=== PATIENT | female | born 1990 | race Caucasian/White ===

== ENCOUNTER 2021-11-16 12:06 | Emergency (ER) | payer OTHER, MEDICAID, SELFPAY ==
[2021-11-16 12:29] VITALS: BP 138/89; PULSE 88; RESP 18; TEMP 36.8; O2SAT 100
--- NOTE | 2021-11-16 14:03 | ED.URI ---
HPI - URI/Sore Throat General Chief Complaint: Ear Stated Complaint: toothache,sorethroat,bilateral ear pain Time Seen by Provider: 11/16/21 14:17 Source: patient and RN notes reviewed Mode of arrival: ambulatory Limitations: no limitations History of Present Illness HPI Narrative: 30-year-old female presents concern for left lower dental pain that is causing ear pain, jaw pain, sinus pain and sore throat. She reports she has been having some dental work done but had to quit getting dental work done because her insurance changed. She reports she has a dentist that she can see but they can get her into left for the holidays. She reports she has been taking ibuprofen with little relief. MD elicited complaint: cough and sore throat Related Data Allergies Allergy/AdvReac Type Severity Reaction Status Date / Time clavulanic acid Allergy Unknown Unknown Verified 11/16/21 13:11 amoxicillin Allergy Rash Verified 11/16/21 13:11 Review of Systems Review of Systems: CONSTITUTIONAL: Denies malaise, chills, sweats, or fever. EYES: Denies visual changes, redness, or discharge. ENT: Reports left-sided sinus pain, congestion, sore throat and ear pain. Reports left lower dental pain CARDIOVASCULAR: Denies chest pain, palpitations, or edema. RESPIRATORY: Denies cough. Denies dyspnea. GASTROINTESTINAL: Denies abdominal pain, nausea, vomiting, diarrhea SKIN: Denies rash or itching. MUSCULOSKELETAL: Denies myalgia. NEUROLOGIC: Reports headache. All systems reviewed & are unremarkable except as noted in HPI and below PMFSH Past Medical History Medical History (Updated 11/16/21 @ 14:24 by Nadege Patterson NP) Anemia Anxiety Depression Social History Social History Smoking status: Never smoker Gender identity (if verbalized by the patient): Female Comments At time of signature, agree with nursing past medical, surgical, social and family history. There is no relevant family history pertinent to the presenting complaint Exam Narrative: GENERAL: Nontoxic-appearing, well-nourished, appears to be in pain HEAD: Normocephalic EYES: PERRLA, conjunctivae clear ENT: Nares clear. Mucous membranes moist. TM pearly waddell with sharp light reflex bilaterally; no tragal tenderness. Oropharynx not erythematous without lesions. Tonsils not enlarged and without exudate, no drooling, no hoarseness, no trismus, uvula midline. Left lower posterior gingival erythema and edema, left lower jaw swelling NECK: Supple. No lymphadenopathy CHEST: Clear to auscultation, breath sounds equal. No wheezing, rhonchi, rales, or stridor. No respiratory distress, speaks in full sentences. HEART: Regular rate and rhythm. No murmur heard. SKIN: Warm, dry, no rash. NEURO: Alert and oriented x3. PSYCH: Tearful Course Course Emergency Course: Patient is aware of diagnosis, understands and agrees to treatment plan. Anticipatory guidance given. Patient agrees to follow-up as directed and is aware of reasons to seek care at the emergency department. Portions of this record may have been created with voice recognition software Vital Signs Vital signs: Vital Signs Temperature 98.3 F 11/16/21 12:29 Pulse Rate 88 11/16/21 12:29 Respiratory Rate 18 11/16/21 12:29 Blood Pressure 138/89 11/16/21 12:29 Pulse Oximetry 100 11/16/21 12:29 Temperature 98.3 F 11/16/21 12:29 Pulse Rate 88 11/16/21 12:29 Respiratory Rate 18 11/16/21 12:29 Blood Pressure 138/89 11/16/21 12:29 Pulse Oximetry 100 11/16/21 12:29 Reviewed. MDM - URI/Sore Throat MDM Narrative Medical decision making narrative: Patients pain and complaint coupled with physical findings are consistant with dentalgia. There are no focal signs of space occupying lesions that are compromising to the airway; no dysphagia, odynophagia, dysphonia, or dyspnea. No uvular deviation or soft palate edema. Patient is non-toxic appearing. The floor of
== END 2021-11-16 14:35 | disposition home or self-care (01) ==
PROVIDERS: Emergency Provider Nurse Practitioner
DX: K04.7 Periapical abscess without sinus (principal)
CPT/HCPCS: 99213; G0463

== ENCOUNTER 2023-12-07 17:14 | Emergency (ER) | payer OTHER, SELFPAY ==
[2023-12-07 17:22] VITALS: BP 138/97; PULSE 95; RESP 16; TEMP 37.9; O2SAT 98
--- NOTE | 2023-12-07 17:28 | ED.URI ---
HPI - URI/Sore Throat General Chief Complaint: Upper Respiratory Infection Stated Complaint: Nausea;Cough;Congestion;Chills Source: patient, RN notes reviewed and old records reviewed Mode of arrival: ambulatory Limitations: no limitations History of Present Illness HPI Narrative: 32-year-old female presents to [facility] with complaint of cough, congestion, nausea, vomiting, myalgia, chills that started this a.m.. Patient taking medications with no relief. Patient denies chest pain, shortness of breath, weakness, dizziness. MD elicited complaint: cough and other ( nausea vomiting) Onset (ago): day(s) (1) Severity: moderate Able to tolerate fluids by mouth: Yes Relieving factors: nothing Related Data Home Medications Medication Instructions Recorded Confirmed norgestimate-ethinyl estradiol 1 tablet PO DAILY 12/07/23 12/07/23 0.18 mg/0.215mg/0.25mg-35 mcg(28)tablet (Tri-Sprintec (28)) Allergies Allergy/AdvReac Type Severity Reaction Status Date / Time clavulanic acid Allergy Unknown Unknown Verified 12/07/23 17:18 amoxicillin Allergy Rash Verified 12/07/23 17:18 Review of Systems Constitutional: Constitutional: Reports no additional constitutional complaints, Reports body ache(s), Reports chills, Reports fatigue, Denies fever(s) and Reports headache(s) Eyes: Eyes: Reports no additional eye complaints and Denies blurry vision ENT: Reports system reviewed and no additional complaints, except as documented, Denies vertigo, Denies dizziness, Denies ear discharge, Denies otalgia, Denies facial pain, Denies headache(s), Reports nasal congestion, Reports nasal discharge, Denies sinus pain, Reports sinus pressure and Reports sore throat Cardiovascular: Cardiovascular: Reports no additional cardiovascular complaints, Denies chest pain, Denies chest pain at rest, Denies rapid heart rate and Denies dyspnea Respiratory: Respiratory: Reports no additional respiratory complaints, Denies chest congestion, Reports cough, Denies pain on inspiration, Denies pain with cough and Denies dyspnea Gastrointestinal: Gastrointestinal: Denies abdominal pain, Denies diarrhea, Reports nausea and Reports vomiting Integumentary/Breasts: Skin/Breast: Denies rash Neurologic: Reports system reviewed and no additional complaints, except as documented, Denies vertigo, Denies dizziness and Denies headache(s) Endocrine: Endocrine: Denies fatigue PMFSH Past Medical History Medical History (Updated 12/07/23 @ 17:45 by Lise Garcia APRN) Anemia Anxiety Depression Social History Social History Smoking status: Never smoker Gender identity (if verbalized by the patient): Female Comments At the time of my signature, I reviewed and agree with the nursing past medical, surgical, social, and family history. There is no relevant family history pertinent to the patient complaint. Exam Const: General: cooperative, healthy appearing, no acute distress and well nourished Nutritional Appearance: well nourished Orientation/consciousness: patient oriented x3 Limitations: no limitations HENMT: Head: normal to inspection and normocephalic Ears: external ears normal, TM's normal bilaterally, mastoids normal and Abnormal EAC present Face/Nose/Sinus: normal facial exam Face and sinus: normal facial exam Mouth: Yes Normal oral and palatal mucosa present, Yes oropharynx normal and Yes moist mucous membranes Throat: tonsils normal, uvula midline, posterior oropharynx abnormal erythema and no uvular edema Eyes: General: appearance normal, both eyes and all related structures Sclera: sclerae normal Pupils: Equal, round and reactive pupils present Resp: Effort & Inspection: normal respiratory effort, able to speak in complete sentences, no audible wheezes, no cough, no respiratory distress and no retractions Auscultation: clear to auscultation bilaterally, no crackles, no rales, no
== END 2023-12-07 17:54 | disposition home or self-care (01) ==
PROVIDERS: Emergency Provider Registered Nurse
DX: J10.1 Influenza due to other identified influenza virus with other respiratory manifestations (principal); Z20.822 Contact with and (suspected) exposure to COVID-19
CPT/HCPCS: 81003; 81025; 87081; 87426; 87804; 87880; 99213; G0463

== ENCOUNTER 2025-09-08 10:17 | Emergency (ER) | payer OTHER, SELFPAY ==
[2025-09-08 10:19] VITALS: BP 110/76; PULSE 72; RESP 16; TEMP 36.7; O2SAT 100
--- OUTSIDE RECORDS SUMMARY | 2025-09-08 12:28 | XMS_ITS | Clinical Summary ---
Author Organization [facility] [employer] [place] Address [address] [place] [id number] Care Team Providers Care Road Mender Name Role Phone Janae Lai MD Primary Care Provider [phone] Allergies Active Allergy Reactions Criticality Noted Date Comments Amoxicillin-Pot Clavulanate Hives High 09/05/20 23 Medications Tri-Sprintec, 28, 0.18/0.215/0.25 mg-35 mcg (28) tabletIndications: Encounter for initial prescription of contraceptive pills Take 1 tablet by mouth once daily 28 Tablet 4 Active Active Problems Problem Noted Date Diagnosed Date Mild depression 09/05/2023 Lymphedema of both lower extremities 09/05/2023 Overview (09/05/2023): treats wtih LE pumps weekly. goal to use daily. Encounter for initial prescription of contracept jake pills 09/05/2023 Immunizations Immunization Administration Dates Next Due (ADACEL/BOOSTRIX)(10 YR UP) TDAP VACCINE, 0.5ML, IM 04/23/2019 Family History Medical History Relation Name Comments No Known Problems Brother Alcohol abuse Father Lung Cancer Maternal Grandfather Breast Cancer Maternal Grandmother Diabetes Mother Obesity Mother Thyroid Disease Mother Relation Name Status Comments Brother Alive Father Alive Maternal Grandfather Maternal Grandmother Mother Son 1 Alive Son 2 Alive Social History Tobacco Use Types Packs/Day Years Used Date Smoking Tobacco: Never Smokeless Tobacco: Never Alcohol Use Standard Drinks/Week Comments Yes 0 (1 standard drink = 0.6 oz pure alcohol) less than a glass a week socially Comments No Sex and Gender Information Value Date Recorded Sex Assigned at Not on file 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 Gender Identity Not on file Sexual Orientation Not on file Last Filed Vital Signs Vital Sign Reading Time Taken Comments Blood Pressure 106/60 09/05/2023 1:05 PM CDT Pulse 62 09/05/2023 1:05 PM CDT Temperature 36.8 C (98.2 F) 09/05/2023 1:05 PM CDT Respiratory Rate - - Oxygen Saturation 98% 09/05/2023 1:05 PM CDT Inhaled Oxygen Concentration - - Weight 133.4 kg (294 lb 3.2 oz) 09/05/2023 1:05 PM CDT Height 177.8 cm (5' 10) 09/05/2023 1:05 PM CDT Body Mass Index 42.21 09/05/2023 1:05 PM CDT Plan of Treatment Health Maintenance Due Date Last Done Comments HEPATITIS B VACCINES (1 of 3 - 19+ 3-dose series) 12/19 HPV/Cotest (21-29) 2013 HPV VACCINES (1 - 3-dose SCDM series) 2019 CERVICAL CANCER SCREENING 2022 HPV/Cotest (30-65) 2022 PAP SMEAR 2022 INFLUENZA VACCINE (#1) 2025 DTAP/TDAP/TD VACCINES (2 - Td or Tdap) 04/23/2029 Insurance [employer] OPEN [employer]ESS Care Teams Road Mender Relationship Specialty Start Date End Date Janae Lai MD [address] [place] [address] [place] [address] PCP - General Internal Medicine 04/16/24
--- NOTE | 2025-09-08 13:05 | ED.EAR ---
HPI - Ear Problem General Chief complaint: Ear Stated complaint: R ear pain Time Seen by Provider: 09/08/25 12:05 History of Present Illness HPI Narrative: Patient is a 34-year-old female who presents ER with right ear pain. Began yesterday. Muffled hearing. Mild drainage. Pain with manipulation. No fevers or chills or sweats. Related Data Home Medications ?Medication ?Instructions ?Recorded ?Confirmed ?Last Taken ?Type norgestimate-ethinyl estradiol 1 tablet PO DAILY 12/07/23 12/07/23 Unknown History 0.18mg/0.215mg/0.25mg-0.035mg(28)tablet (Tri-Sprintec (28)) Allergies Allergy/AdvReac Type Severity Reaction Status Date / Time clavulanic acid Allergy Unknown Unknown Verified 09/08/25 10:29 amoxicillin Allergy Rash Verified 09/08/25 10:29 Review of Systems Constitutional: Constitutional: Reports no additional constitutional complaints ENT: Reports system reviewed and no additional complaints, except as documented PMFSH Past Medical History Medical History (Updated 09/08/25 @ 13:09 by Denis Lebron MD) Anemia Depression Anxiety Social History Social History Smoking status: Never smoker Gender identity (if verbalized by the patient): Female Exam Narrative: GENERAL: Well-appearing, well-nourished, and in no acute distress. HEAD: Normocephalic, atraumatic. ENT: Mucous membranes moist. Normal left tympanic membrane and ear canal. Right ear canal edematous and narrowed with purulent material in the canal, significant discomfort with manipulation of the right external ear. No mastoid tenderness or swelling. NECK: Supple. EXTREMITIES: Normal range of motion. No edema. NEURO: Alert and oriented x3. PSYCH: Normal mood and affect. Course Course Emergency Course: Discussed diagnosis and treatment plan. Patient verbalized understanding. Discharge home. Vital Signs Vital signs: Vital Signs Temperature 98.1 F 09/08/25 10:19 Pulse Rate 72 09/08/25 10:19 Respiratory Rate 16 09/08/25 10:19 Blood Pressure 110/76 09/08/25 10:19 Pulse Oximetry 100 09/08/25 10:19 Temperature 98.1 F 09/08/25 10:19 Pulse Rate 72 09/08/25 10:19 Respiratory Rate 16 09/08/25 10:19 Blood Pressure 110/76 09/08/25 10:19 Pulse Oximetry 100 09/08/25 10:19 Medical Decision Making Differential Diagnosis Differential Diagnosis: Ear foreign body, otitis media, otitis externa, ear drum perforation, mastoiditis Vital Signs Vital Signs: Vital Signs Temperature 98.1 F 09/08/25 10:19 Pulse Rate 72 09/08/25 10:19 Respiratory Rate 16 09/08/25 10:19 Blood Pressure 110/76 09/08/25 10:19 Pulse Oximetry 100 09/08/25 10:19 Temperature 98.1 F 09/08/25 10:19 Pulse Rate 72 09/08/25 10:19 Respiratory Rate 16 09/08/25 10:19 Blood Pressure 110/76 09/08/25 10:19 Pulse Oximetry 100 09/08/25 10:19 Discharge Plan Discharge Clinical Impression: Otitis externa Patient Disposition: Home Condition: Stable Instructions: Antibiotic Form, Swimmer's Ear (ED) Additional Instructions: Return ER if you are having increased pain, you have worsening discharge, you develop fever over 100.4? F, or you have additional concerns. Patient Language: Romansh Prescriptions: New ciprofloxacin-dexamethasone 0.3-0.1 % drops,suspension 4 drp RIGHT EAR Q12H 7 Days Qty: 7.5 0RF hydrocodone-acetaminophen 5-325 mg tablet 1 tablet PO Q6H PRN (Reason: pain) Qty: 14 0RF No Action norgestimate-ethinyl estradiol [Tri-Sprintec (28)] 0.18/0.215/0.25 mg-35 mcg (28) tablet 1 tablet PO DAILY ondansetron 4 mg tablet,disintegrating 4 mg PO Q6H PRN (Reason: nausea and vomiting) Qty: 20 0RF Follow-up/Referrals: Demond Multani MD [Physician, Family Practice] - 1 Week PHYSICIAN,DROP FORGER HELPER [Primary Care Provider, Internal Medicine]
--- OUTSIDE RECORDS SUMMARY | 2025-09-08 15:28 | XMS_ITS | Clinical Summary ---
Author Organization [facility] [employer] [place] Address [address] [place] [id number] Care Team Providers Care Nurse First Assist Name Role Phone Janae Lai MD Primary Care Provider [phone] Allergies Active Allergy Reactions Criticality Noted Date [...] on file Legal Sex Female 11:42 AM [employer]LE[employer] Gender Identity Not on file Sexual Orientation [...] 04/23/2029 Insurance [employer] OPEN ACCESS Care Teams Nurse First Assist Relationship Specialty Start Date End Date Janae Lai MD [address] [place] [address] [place] [address] PCP - General Internal Medicine 04/16/24
== END 2025-09-08 13:34 | disposition home or self-care (01) ==
PROVIDERS: Emergency Provider Emergency Medicine
DX: H60.91 Unspecified otitis externa, right ear (principal)
CPT/HCPCS: 99283